=== PATIENT | male | born 1955 | race Caucasian/White ===

== ENCOUNTER 2018-11-25 10:07 | Emergency (ER) | payer OTHER ==
[~2018-11-25] VITALS: Ht 172.7 cm; Wt 81.7 kg
[~2018-11-25 10:07] MED LIST: ASPIRIN325 PO; BACTRIM DS TAB1 EACH PO; CARAFATE 11 GM/10 M1 GT; CENTRUM SILVER1 EAC2 PO; CLOTRIMAZOLE-BE15 GM TP; FISH OIL 1,001000 M2 PO; FLEXERIL PO; IBUPROFEN 200200 M1 PO; IBUPROFEN 800800 M1 PO; NOHOMEMEDICATIONS; NORCO 5-325 TA1 EACH PO; PRILOSEC 20 MG20 MG PO; TRAMADOL 50 MG50 MG PO; TURMERIC500 MG PO; VICODIN PO; ZYVOX600 MG PO
[2018-11-25 11:12] VITALS: BP 169/64
== END 2018-11-25 11:10 | disposition home or self-care (01) ==
LOC: ER 10:07
DX: S01.81XA Laceration without foreign body of other part of head, initial encounter (principal); F17.200 Nicotine dependence, unspecified, uncomplicated; K21.9 Gastro-esophageal reflux disease without esophagitis; M19.90 Unspecified osteoarthritis, unspecified site; L40.9 Psoriasis, unspecified; Z90.49 Acquired absence of other specified parts of digestive tract; W22.8XXA Striking against or struck by other objects, initial encounter; Y92.89 Other specified places as the place of occurrence of the external cause; Y93.89 Activity, other specified; Y99.8 Other external cause status

== ENCOUNTER 2019-12-15 08:25 | Emergency (ER) | payer OTHER ==
[~2019-12-15] VITALS: Ht 172.7 cm; Wt 83.9 kg
[2019-12-15 09:30] LABS: ABSOLUTE NEUTROPHILS 5.6 thou/uL (1.4-8.2); BASOPHILS 1.2 % (0.0-2.0); EOSINOPHILS 6.1 % (0.0-3.0); HEMATOCRIT 45.6 % (42.0-52.0); HEMOGLOBIN 15.5 gm/dL (14.0-18.0); LYMPHOCYTES 22.5 % (24.0-44.0); MCH 29.7 pg (26.0-34.0); MCHC 33.9 g/dL (28.0-37.0); MCV 87.7 fL (80.0-100.0); MONOCYTES 9.7 % (1.0-8.0); PLATELET COUNT 309 thou/uL (150-400); POLYS 60.5 % (36.0-66.0); RBC 5.21 mil/uL (4.50-6.00); RDW 14.2 % (10.5-14.5); WBC 9.2 thou/uL (4.0-11.0)
[2019-12-15 09:34] LABS: ANION GAP 8 mmol/L (7-16); BUN 7 mg/dL (7-18); CALCIUM 8.7 mg/dL (8.5-10.1); CHLORIDE 103 mmol/L (98-107); CO2 27 mmol/L (21-32); CREATININE 1.1 mg/dL (0.7-1.3); GLUCOSE 99 mg/dL (74-106); SODIUM 138 mmol/L (136-145)
[2019-12-15 09:38] LABS: URINE BILIRUBIN NEGATIVE (Negative); URINE BLOOD TRACE (Negative); URINE CLARITY CLEAR; URINE COLOR YELLOW; URINE GLUCOSE-RANDOM* NEGATIVE (Negative); URINE KETONES NEGATIVE (Negative); URINE LEUKOCYTES-REFLEX NEGATIVE (Negative); URINE NITRITE-REFLEX NEGATIVE (Negative); URINE PROTEIN (DIPSTICK) NEGATIVE (Negative); URINE SPECIFIC GRAVITY <= 1.005 (1.005-1.035); URINE UROBILINOGEN 0.2 E.U./dl (0.2-1.0)
[2019-12-15 09:44] LABS: ALBUMIN 3.7 g/dL (3.4-5.0); DIRECT BILIRUBIN < 0.1 mg/dL (<0.1-0.2); MAGNESIUM 2.1 mg/dL (1.8-2.4); SGOT 23 U/L (15-37); SGPT 24 U/L (30-65); TOTAL BILIRUBIN 0.4 mg/dL (0.2-1.0); TOTAL PROTEIN 7.9 g/dL (6.4-8.2); TROPONIN-I <0.06 ng/mL (<0.06)
[2019-12-15 10:14] VITALS: BP 136/85
--- NOTE | 2019-12-16 07:52 | EKG ---
[facility] [place] [place] [address] ELECTROCARDIOGRAM REPORT Name: GLENNY VAUGHN Room #: DEP Jez#: [id number] Admission: 12/15/19 Attend Phys: Discharge: 12/15/19 Date of : 51 Report #: [id number] THIS REPORT FOR: cc: Megan Gutierrez DNP, Mary E. DNP Lundgren, Craig H. MD [facility] ~ THIS REPORT FOR: //name// [facility] ED Test Date: 2019-12-15 Test Time: 08:31:36 Pat Name: GLENNY VAUGHN Department: Room: Gender: Veneer Department Manager: [facility] : 1955 Requested By: Nighat Rodriguez Order Number: [id number] MD: Tito Hooks Measurements Intervals [place] Rate: 70 P: 48 WA: 156 QRS: 4 QRSD: 107 T: 22 QT: 385 QTc: 416 Interpretive Statements Sinus rhythm Occasional premature supraventricular complexes RSR' in V1 or V2, probably normal variant Compared to ECG 10/09/2009 09:40:53 Atrial premature complex(es) now present RSR' in V1 or V2 now present Sinus bradycardia no longer present Electronically Signed On 12-16-2019 7:52:06 CDT by Tito Hooks [email or web address] <ELECTRONICALLY SIGNED> By: Tito Hooks MD, FAC 12/16/19 0752 0 0 Tito Hooks MD, [facility] /EPI
== END 2019-12-15 10:14 | disposition home or self-care (01) ==
LOC: ER 08:25
PROVIDERS: Emergency Medicine
DX: R53.1 Weakness (principal); R11.2 Nausea with vomiting, unspecified; R07.89 Other chest pain; R53.83 Other fatigue; L40.9 Psoriasis, unspecified; K21.9 Gastro-esophageal reflux disease without esophagitis; M19.90 Unspecified osteoarthritis, unspecified site; I10 Essential (primary) hypertension; E78.5 Hyperlipidemia, unspecified; F17.210 Nicotine dependence, cigarettes, uncomplicated; Z79.82 Long term (current) use of aspirin; Z79.899 Other long term (current) drug therapy; Z86.73 Personal history of transient ischemic attack (TIA), and cerebral infarction without residual deficits; Z98.890 Other specified postprocedural states; Z90.49 Acquired absence of other specified parts of digestive tract

== ENCOUNTER → 2019-12-28 | Outpatient (CLI) | payer OTHER | LOC: SJCVCIMAG 12-21 09:46 | PROVIDERS: ATTEND Internal Medicine Cardiovascular Disease | DX: I49.3 Ventricular premature depolarization (principal); I25.10 Atherosclerotic heart disease of native coronary artery without angina pectoris; R93.1 Abnormal findings on diagnostic imaging of heart and coronary circulation ==

== ENCOUNTER → 2020-06-20 | Outpatient (CLI) | payer OTHER | LOC: LAB 08:29 | PROVIDERS: ATTEND Nurse Practitioner | DX: U07.1 COVID-19 (principal); R50.9 Fever, unspecified; R43.8 Other disturbances of smell and taste ==

== ENCOUNTER 2020-12-18 07:24 | Emergency (ER) | payer OTHER ==
[~2020-12-18] VITALS: Ht 172.7 cm; Wt 83.9 kg
[2020-12-18 07:24] VITALS: BP 126/81
== END 2020-12-18 08:00 | disposition home or self-care (01) ==
LOC: ER 07:24
DX: Z20.822 Contact with and (suspected) exposure to COVID-19 (principal); K21.9 Gastro-esophageal reflux disease without esophagitis; F17.210 Nicotine dependence, cigarettes, uncomplicated; Z90.49 Acquired absence of other specified parts of digestive tract; Z98.890 Other specified postprocedural states; Z79.82 Long term (current) use of aspirin; Z79.899 Other long term (current) drug therapy

== ENCOUNTER → 2021-02-22 | Outpatient (CLI) | payer OTHER | LOC: BC 14:59 | PROVIDERS: ATTEND Nurse Practitioner | DX: R23.4 Changes in skin texture (principal) ==

== ENCOUNTER 2021-06-08 11:20 | Emergency (ER) | payer OTHER ==
[~2021-06-08] VITALS: Ht 172.7 cm; Wt 81.7 kg
[2021-06-08] MEDS ORDERED: ROSUVASTATIN CA40 MG PO (11:28)
[2021-06-08] MEDS ORDERED: CLOPIDOGREL75 MG PO (11:28)
[2021-06-08 11:51] LABS: ABSOLUTE NEUTROPHILS 6.8 thou/uL (1.4-8.2); BASOPHILS 0.6 % (0.0-2.0); EOSINOPHILS 4.6 % (0.0-3.0); HEMATOCRIT 45.3 % (42.0-52.0); HEMOGLOBIN 15.4 gm/dL (14.0-18.0); LYMPHOCYTES 21.4 % (24.0-44.0); MCH 29.8 pg (26.0-34.0); MCV 87.6 fL (80.0-100.0); MONOCYTES 7.2 % (1.0-8.0); PLATELET COUNT 273 thou/uL (150-400); POLYS 66.2 % (36.0-66.0); RBC 5.17 mil/uL (4.50-6.00); WBC 10.3 thou/uL (4.0-11.0)
[2021-06-08 11:58] LABS: CALCIUM 8.9 mg/dL (8.5-10.1); POTASSIUM 3.6 mmol/L (3.5-5.1)
[2021-06-08 12:08] LABS: ALBUMIN 3.7 g/dL (3.4-5.0); TOTAL BILIRUBIN 0.4 mg/dL (0.2-1.0); TOTAL PROTEIN 7.7 g/dL (6.4-8.2)
--- NOTE | 2021-06-08 12:23 | EKG ---
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 : 1955 Requested By: Shameka Dumont Order Number: [id number] MD: Dane Glover Measurements Intervals [place] Rate: 82 P: 41 VA: 160 QRS: -1 QRSD: 100 T: 8 QT: 377 QTc: 441 Interpretive Statements Sinus rhythm Probable left atrial enlargement RSR' in V1 or V2, probably normal variant Compared to ECG 12/15/2019 08:31:36 Atrial premature complex(es) no longer present Electronically Signed On 06-08-2021 12:23:03 SUPPORT TEACHER by Dane Glover [email or web address] <ELECTRONICALLY SIGNED> By: Dane Glover MD, [facility] 06/08/21 1223 [id number] [id number] Dane Glover MD, FACC /EPI
[2021-06-08 15:19] VITALS: BP 149/92
== END 2021-06-08 15:19 | disposition home or self-care (01) ==
LOC: ER 11:20
PROVIDERS: Emergency Medicine
DX: R07.89 Other chest pain (principal); K21.9 Gastro-esophageal reflux disease without esophagitis; M19.90 Unspecified osteoarthritis, unspecified site; F17.210 Nicotine dependence, cigarettes, uncomplicated; Z79.899 Other long term (current) drug therapy; Z90.49 Acquired absence of other specified parts of digestive tract